=== PATIENT | male | born 1960 | race Caucasian/White ===

== ENCOUNTER → 2016-10-20 | Outpatient (CLI) | payer OTHER | LOC: BMCIMAGING 14:22 | PROVIDERS: ATTEND Nurse Practitioner Adult Health | DX: J40 Bronchitis, not specified as acute or chronic (principal) ==

== ENCOUNTER 2018-07-31 10:21 | Observation (INO) | payer OTHER ==
[2018-07-31 11:05] LABS: PLATELET COUNT 171 10^3/uL (150-400)
[2018-07-31] MEDS ORDERED: ASPIRIN 325 MG TAB PO ONE (11:10)
--- NOTE | 2018-07-31 11:15 | EDPHY ---
H & P Stated Complaint: R ARM AND LEG WEAKNESS FOR LAST 2 DAYS/WHILE TRAVELING IN [facility] Time Seen by Provider: 07/31/18 10:31 HPI/ROS: CHIEF COMPLAINT: Right-sided weakness HISTORY OF PRESENT ILLNESS: 58-year-old male with diabetes and hypertension presents with right-sided weakness. Onset of right-sided weakness 3 days ago while in new [facility]. He has been dropping objects while using his right hand and his hand writing has deteriorated. He also has an unsteady gait because his right lower extremity is not working as usual. No recent head injury and no headache. No prior history of CVA/TIA. REVIEW OF SYSTEMS: complete 10 point ROS reviewed and is negative except for the noted elements in the HPI - Personal History Current Tetanus Diphtheria and Acellular Pertussis (TDAP): Yes - Medical/Surgical History Hx Asthma: Yes Hx Chronic Respiratory Disease: No Hx Diabetes: Yes Hx Cardiac Disease: No Hx Renal Disease: No Hx Cirrhosis: No Hx Alcoholism: No Hx HIV/AIDS: No Hx Splenectomy or Spleen Trauma: No Other PMH: HTN/ASTHMA/DIABETES/BILAT KNEE SURGERY UMBILICAL HERNIA - Social History Smoking Status: Never smoked Alcohol Use: Occasionally Drug Use: None Additional Social History: - Physical Exam Exam: General Appearance: Alert, pleasant Eyes: Pupils equal and round, no conjunctival pallor or injection ENT, Mouth: Mucous membranes moist Neck: Normal inspection Respiratory: Lungs are clear to auscultation Cardiovascular: Regular rate and rhythm, no murmur Gastrointestinal: Abdomen is soft and nontender Neurological: A&O, motor-right upper extremity 5-/5, right lower extremity 5-/5 , gait not assessed Skin: Warm and dry, no rash Extremities: Nontender, no pedal edema Psychiatric: Mood and affect normal Constitutional: Initial Vital Signs Temperature (C) 36.4 C 07/31/18 10:25 Heart Rate 83 07/31/18 10:25 Respiratory Rate 17 07/31/18 10:25 Blood Pressure 158/95 H 07/31/18 10:25 O2 Sat (%) 93 07/31/18 10:25 O2 Delivery Mode Room Air Allergies/Adverse Reactions: Sulfa (Sulfonamide Antibiotics) Allergy (Verified 07/31/18 10:24) Home Medications: Medication Instructions Recorded Albuterol [Proventil Inhaler HFA 1 - 2 puffs IH Q4HRS PRN 07/31/18 (*)] Atorvastatin Calcium [Lipitor 40 40 mg PO DAILY 07/31/18 mg (*)] Fluticasone/Salmeter 250/50Mcg 1 each IH DAILY PRN 07/31/18 [Advair 250/50 (*)] Losartan Potassium [Cozaar 50 mg 50 mg PO DAILY 07/31/18 (*)] Montelukast Sodium [Singulair 10 10 mg PO DAILY 07/31/18 mg (*)] Pantoprazole Sodium [Protonix 40mg 40 mg PO DAILY 07/31/18 (*)] Pioglitazone HCl/Metformin HCl 1 each PO BID 07/31/18 [Actoplus Met 15 mg-850 mg Tab] sitaGLIPtin PHOSPHATE [Januvia 100 100 mg PO DAILY 07/31/18 MG (*)] Aspirin [Adult Low Dose Aspirin EC] 81 mg PO DAILY #30 tablet. 08/01/18 Medical Decision Making - Diagnostics EKG Interpretation: EKG interpreted by me reveals normal sinus rhythm, rate 81, no ST or T segment changes. Interpretation: Normal EKG Imaging Results: CT scan of the brain read by the radiologist reveals a subacute infarct in the left basal ganglia Imaging: Discussed imaging studies w/ driving instructor Radiologist ED Course/Re-evaluation: This patient presents with right-sided weakness, consistent with CVA. He is not a tPA candidate, as symptoms have been present for [address] scan brain per Dr. Perrin reveals a subacute ischemic stroke. Results discussed with the patient. Aspirin [address] Ontiveros consulted and will see the patient in the hospital. The hospitalist service was consulted for admission. The patient was stable throughout his emergency department stay. Differential Diagnosis: Altered mental status including but not limited to hypoglycemia, infectious process, electrolyte abnormality, head injury, CVA, and intoxicants. - Data Points Laboratory Results: Laboratory Results 07/31/18 11:00 07/31/18 11:00 Medications Given: Discontinued Medications Aspirin (Aspirin) 325 mg PO EDNOW ONE Stop: 07/31/18 11:11 Last Admin: 07/31/18 11:29 Dose: 325 mg Aspirin (Aspirin) 325 mg PO DAILY LEONILA Stop: 01/28/19 08:59 Last Admin: 08/01/18 08:10 Dose: 325 mg Atorvastatin Calcium (Lipitor) 40 mg PO DAILY LEONILA Stop: 07/14/19 08:59 Last Admin: 08/01/18 08:10 Dose: 40 mg Enoxaparin Sodium (Lovenox) 40 mg SC DAILY [facility] Stop: 01/28/19 08:59 Last Admin: 08/01/18 08:11 Dose: 40 mg Insulin Human Lispro (Humalog Lispro) 0 unit SC TIDMEAL [facility] PRN Reason: Protocol Stop: 01/27/19 17:59 Last Admin: 08/01/18 11:26 Dose: 2 units Losartan Potassium (Cozaar) 50 mg PO DAILY [facility] Stop: 01/28/19 08:59 Last Admin: 08/01/18 08:10 Dose: 50 mg Montelukast Sodium (Singulair) 10 mg PO DAILY [facility] Stop: 01/28/19 08:59 Last Admin: 08/01/18 08:11 Dose: 10 mg Pantoprazole Sodium (Protonix) 40 mg PO DAILY [facility] Stop: 01/28/19 08:59 Last Admin: 08/01/18 08:11 Dose: 40 mg Sitagliptin Phosphate (Januvia) 100 mg PO DAILY [facility] Stop: 01/28/19 08:59 Last Admin: 08/01/18 08:11 Dose: 100 mg Point of Care Test Results: Chemistry 07/31/18 11:01 POC Troponin I 0.00 ng/mL ng/mL (0.00-0.08) Departure - Departure Disposition: [facility] Acute Clinical Impression: Acute ischemic stroke Condition: Fair
[2018-07-31] MEDS ORDERED: ALBUTEROL 60 PUFFS/8 GM MDI IH PRN (13:51)
[2018-07-31] MEDS ORDERED: FLUTICASONE/SALMETER 250/50MCG DISKUS IH PRN (13:51)
[2018-07-31] MEDS ORDERED: NS 1,000 ML IV SCH (14:45)
[2018-07-31] MEDS ORDERED: IOPAMIDOL (ISOVUE 370) 100 ML BTL IV ONE (15:04)
[2018-07-31] MEDS ORDERED: ONDANSETRON 4 MG/2 ML VIAL IVP PRN (15:31)
[2018-07-31] MEDS ORDERED: ONDANSETRON DISINTEGRATING 4 MG TAB PO PRN (15:31)
[2018-07-31] MEDS ORDERED: D50W 25 GM/50 ML SYR IVP PRN (15:31)
[2018-07-31] MEDS ORDERED: ACETAMINOPHEN 325 MG TAB PO PRN (15:31)
--- NOTE | 2018-07-31 15:40 | CPEKG ---
Test Reason : OPEN Blood Pressure : / mmHG Vent. Rate : 081 BPM Atrial Rate : 081 BPM P-R Int : 156 ms QRS Dur : 084 ms QT Int : 382 ms P-R-T Axes : 039 012 038 degrees QTc Int : 444 ms Sinus rhythm Confirmed by Janine Gomez ([id number]) on 07/31/2018 3:39:34 PM Referred By: Confirmed By:Janine Gomez
--- NOTE | 2018-07-31 16:24 | GHP ---
DATE OF ADMISSION: 07/31/2018 CHIEF COMPLAINT: Right-sided weakness. HISTORY OF PRESENT ILLNESS: This is a 58-year-old male with a history of hypertension, hyperlipidemia, and diabetes, who presented to the emergency room with ongoing right-sided weakness. The onset of his symptoms started this past Tuesday while he was in the [facility] area. When the symptoms occurred, he had been drinking several drinks that day. Initially, he thought he was having difficulty with using his right hand because he was somewhat intoxicated. He could not hold anything in his hand and the glass would drop out of his right hand. He also notes when he was trying to walk to the bathroom, his right leg had been buckling. He attributed the weakness in his right leg from increased walking while visiting [facility]. He describes that his symptoms may be a bit worse today. He is feeling a little bit more numbness in his right hand. Of note, he has ongoing bilateral peripheral neuropathy. He denies any chest pain, any type of weight change, fatigue, fever, chills. He denies any changes in his vision or hearing. He denies any chest pain. He is having some shortness of breath during my interview because he is anxious about being admitted. His appetite is good. He has had no significant changes in his weight. He does not have any issues with urination or constipation. PAST MEDICAL HISTORY: 1. Diabetes mellitus type 2 on oral medications. 2. Asthma. 3. Hypertension. 4. Hyperlipidemia. 5. Bilateral knee surgery. 6. Hernia repair. 7. Rhinoplasty x2 for polyps and then another time for deviated septum. 8. Fatty tumor removal close to his left shoulder area. FAMILY HISTORY: Noncontributory. SOCIAL HISTORY: He has been for 28 years. He has 2 children. He does not smoke. He does drink alcohol. When he drinks he can drink up to 6-7 drinks at a time and other days he has no alcohol. He has had no signs or symptoms of withdrawal. ALLERGIES: To sulfa, nuts, and chocolate. HOME MEDICATIONS: ACTOplus Met 15 mg-850 mg 1 tab twice daily, albuterol inhaler 1-2 puffs q.4 hours p.r.n., Singulair 10 mg daily, Januvia 100 mg daily , Protonix 40 mg daily, losartan 50 mg daily. Advair 250/50 mcg daily p.r.n., and Lipitor 40 mg daily. REVIEW OF SYSTEMS: A 10-point review of system was performed, was negative other than pertinent positives in the HPI and past medical history. PHYSICAL EXAM: GENERAL: This is a 58-year-old gentleman who does not appear to be in any type of acute distress. VITAL SIGNS: Blood pressure is 167/109, heart rate of 80, respiratory rate of 19, O2 saturation on room air 92%, temperature is 36.8 Celsius. EYES: Pupils are equal and reactive. EOMs are intact. No conjunctival injection noted. ENT normal. Ears hearing intact. Normal lips, teeth. Oral airway is moist. NECK: Trachea is midline. CARDIOVASCULAR: He in a regular rate and rhythm. No murmurs, rubs, or gallops noted. CHEST: Lungs normal respiratory effort. Clear without wheezing, rales, or rhonchi. ABDOMEN: Large and rounded, nontender. SKIN: No rashes, ulcers noted. Warm, dry, and intact. MUSCULOSKELETAL: He has equal upper and lower extremity strength. He has no facial droop. No pronator drift. He is able to do a rbug-[id number] test on both sides equally. PSYCHIATRIC: He is alert and oriented. Normal mood, affect is slightly anxious during my interview. He appears to have normal judgment, insight and normal memory. DATA: Reviewed. Radiologic data: 1. Chest x-ray shows bronchitis. No definite pneumonia. 2. A 12-lead ECG, which I evaluated myself, shows a sinus rhythm. 3. Head CT shows acute to subacute lacunar infarct within the left basal ganglia. 4. Brain MRI shows a lacunar infarct in the central left thalamus, which could be acute or subacute. There is a question of a couple tiny foci and hemosiderin deposition within it, but no definite acute hemorrhage seen on the CT. It shows mild underlying chronic sinus related change and mild left maxillary sinusitis. LABORATORY DATA: A CBC shows a white blood cell count of 6.5, hemoglobin 14.5, hematocrit of 42.3, platelet count of 171. Chemistry sodium is 137, potassium of 3.9, chloride of 103, CO2 of 25, creatinine 0.8, GFR of 60 and glucose is 270. Troponin is 0.00. I reviewed the patient's care with Dr. Padma Gomez, emergency room physician. ASSESSMENT/PLAN: 1. Subacute stroke, lacunar infarct in the central left thalamus. An angiogram of his head and neck are currently pending. An echocardiogram with a bubble study has been ordered. Will continue him on aspirin and statin therapy. Will have him continued on 24 hours of tele monitoring. He likely will need a Holter monitor at discharge. Will check an A1c. Will continue monitoring his blood pressure with a goal of 140/90. 2. Hypertension. Will allow for permissive hypertension in the setting of a recent stroke. 3. Hyperlipidemia. Will continue his statin. Check a lipid panel. 4. Diabetes type 2. Per the patient is poorly controlled. He had an A1c in February. Will recheck this. Will initiate sliding scale insulin. Will order an ADA diet. 5. Alcohol use. He does not drink daily but will drink upto 6 drinks at times. We discussed the importance of avoiding this and the impact on his health. He is in very much agreement of addressing this. 6. Morbid obesity. He has a BMI of 33.5. 7. Code status: Full. 8. Length of stay: He will likely require less than a 2-midnight stay, which will make him observation status. This can be further evaluated. Dr. Ontiveros is aware of the patient's admission and will be following up for further evaluation. /[id number]/MODL MTDD
[2018-07-31] MEDS: INSULIN LISPRO 100 UNIT/ML SC SCH (17:05)
--- NOTE | 2018-07-31 19:40 | GCON ---
NEUROLOGIC CONSULTATION REFERRING PHYSICIAN: Willa Waters NP HISTORY: The patient is a 58-year-old gentleman whom I am asked to see in neurologic consultation re garding stroke. He was in [place] [facility] 2 days ago and had been drinking a significant amount of alcoh ol and developed awareness on his right side of trouble with his leg, which was tending to buckle, an d dropping items with his right hand. He came back to the [place] and has subsequently recogni zed ongoing deficits, which led to his evaluation in the emergency room today. There in the hospital , he had imaging showing a lacunar infarction in the left thalamus and has been admitted for workup f or causes of stroke. He has multiple risk factors that include hyperlipidemia, obesity, hypertension , diabetes type 2. He says that he still recognizes the deficits affecting the right hand and the ri ght leg, but is feeling stable. No chest pain, palpitations, or shortness of breath. PAST MEDICAL HISTORY: As outlined above. He has never had a TIA or stroke or myocardial infarction. Also, history of asthma and rhinoplasty. He has not been very compliant with diet and does not hav e a good exercise regimen, he says. His hemoglobin A1c has been significantly elevated. 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 He has been for 28 years and has 2 children. No smoking. Alcohol is consumed in various amounts from none to as heavy as 6 or 7 drin ks in 1 day. He is still working. ALLERGIES: He has allergies to sulfa, nuts, and chocolate. MEDICATIONS: Medicines at home are albuterol, Singulair, Januvia, Protonix, losartan, Advair, Lipito r. REVIEW OF SYSTEMS: Ten points are negative, except for that noted above. PHYSICAL EXAMINATION: VITAL SIGNS: The blood pressure is 167/109, pulse of 80, respirations 19, tem perature 36.8. GENERAL: He is overweight, in no acute distress. EYES: Clear. NECK: Supple, with no bruits or masses. CARDIAC: Regular rate and rhythm. No murmur. NEUROLOGIC: He is alert and o riented, with no cognitive impairment. Pupils 3 mm and reactive. Extraocular movements are intact. Visual cortes full. Normal facial sensation and strength. Hearing is preserved. Palate elevates s ymmetrically. Tongue protrudes midline. Motor examination reveals normal muscle bulk and tone, with perhaps a slight slowing of movements in the right hand and subtle drift. Right lower extremity has mild weakness of the quadriceps. Sensation is preserved. Reflexes are 1+ and symmetric. He has di stal sensory deficits in the lower extremities consistent with his known peripheral neuropathy. DIAGNOSTIC STUDIES: As outlined above. Echocardiogram is pending. CT angiogram is pending. IMPRESSION: Total unit time of 55 minutes. The patient has experienced an acute stroke 2 days ago, with multiple risk factors. This is a lacunar syndrome consistent with progressive atherosclerotic c hange in penetrating vessels, more likely than a large vessel or embolic phenomenon. He needs to foc us much more attention on diet and risk factor management, and he is well aware of that, and we have talked about that. He was advised on following up with Dr. Bishop to help guide him on appropriate diet and details for implementation of a Mediterranean-based diet, as well as appropriate exercise re gimen. He needs physical and occupational therapy consultation tomorrow morning before discharge to determine if outpatient services are needed. His prognosis is good for improvement, but he still has risk of recurrent stroke and should continue on aspirin, in addition to his other medications. His NIH stroke scale is currently 2. He should follow up with me in about a month to review how he is do ing and any other questions that may arise. /[id number]/MODL
--- NOTE | 2018-08-01 08:03 | NEUROPROG ---
Assessment: Total unit time of 25 min. The patient has experienced a lacunar infarction in the left thalamus with mild residual deficits. Once echocardiogram has been completed he should be able to be discharged today and follow up with me in about 1 month and follow up with primary care in the next few weeks to work on risk factor management. He should continue on daily aspirin therapy. Subjective: The patient is alert and attentive and feeling eager to get out of the hospital as soon as he can. Objective: Vital Signs Temp Pulse Resp BP Pulse Ox 36.8 C 94 18 148/82 H 94 08/01/18 07:45 08/01/18 07:45 08/01/18 07:45 08/01/18 07:45 08/01/18 07:45 07/31/18 08/01/18 08/02/18 05:59 05:59 05:59 Intake Total 1000 Balance 1000 He is currently working with physical therapy. The do not appear to be any new changes. The CT angiogram did not show any hemodynamically significant stenosis but some mild to moderate plaquing in the carotid arteries at the bulb. Allergies/Adverse Reactions: Sulfa (Sulfonamide Antibiotics) Allergy (Verified 07/31/18 10:24)
[2018-08-01] MEDS: INSULIN LISPRO 100 UNIT/ML SC SCH ×2 (08:09→11:26)
[2018-08-01] MEDS ORDERED: MONTELUKAST SODIUM 10 MG TAB PO SCH (09:00)
[2018-08-01] MEDS ORDERED: ASPIRIN 325 MG TAB PO SCH (09:00)
[2018-08-01] MEDS ORDERED: ATORVASTATIN CALCIUM 40 MG TAB PO SCH (09:00)
[2018-08-01] MEDS ORDERED: ENOXAPARIN 40 MG/0.4 ML SYR SC SCH (09:00)
[2018-08-01] MEDS ORDERED: LOSARTAN POTASSIUM 50 MG TAB PO SCH (09:00)
[2018-08-01] MEDS ORDERED: PANTOPRAZOLE SODIUM 40 MG TAB PO SCH (09:00)
[2018-08-01 11:18] VITALS: BP 150/80
--- NOTE | 2018-08-01 15:46 | ASMTLACE ---
LACE Length of stay for Answers: 2 days current admission Acuity / Level of Answers: No Care: Did the patient have an inpatient admission? Comorbidities - select Answers: Diabetes (uncontrolled or all that apply controlled) Other Notes: HTN # of Emergency department Answers: 1-2 visits in the last 6 months Score: 5 Date Signed: 08/01/2018 03:45 PM Electronically Signed By:DAGMAR Jones
--- NOTE | 2018-08-01 15:47 | ASMTCMCOM ---
CM Note CM Note Notes: Neuro/PT/OT/SILVERER clear pt for home. No CM d/c needs identified. Date Signed: 08/01/2018 03:46 PM Electronically Signed By:DAGMAR Jones
--- NOTE | 2018-08-01 16:37 | PDDCSUM ---
Discharge Summary Discharge Summary: Date of Admission: 07/31/2018 Date of Discharge: 08/01/2018 Consults: Neurology Procedures: CT Head, MRI Brain, CTA Head Neck, TTE Followup: PCP, Neurology Hospital Course Problem ListL Subacute Stroke, Lacunar infarct in central L thalamus - Seen on MRI - Neurology consulted who recommend continued on ASA daily, will f/u as outpatient - Lipid panel checked, continue home statin - Hgb A1c elevated to 11.5, see below - TTE with bubble study ordered to evaluate for shunting, patient did not want to stay in the hospital to await these results, discussed with patients who agreed to followup on these results with his PCP Dr. Bishop Uncontrolled T2DM - A1c 11.5 - Continue home anti-hyperglycemics - Will defer to PCP for further management, should be placed on insulin regimen given elevated A1c and current CVA HTN - Continue home meds Chronic Issues: Alcohol abuse, Morbid Obesity Time spent on discharge was >35 minutes with >50% of time spent on patient education and counseling.
--- NOTE | 2018-08-01 19:05 | ECHO ---
[email or web address] [address] [address] Main: [phone] Fax: Transthoracic Echocardiogram Name: LISY SALGADO MR#: [id number] Study Date: 08/01/2018 Study Time: 11:30 AM Date of : 1960 Age: 58 year(s) Height: 172.7 cm (68 in.) Weight: 99.79 kg (220 lb.) BSA: 2.13 m2 Gender: Male Examination: Echo Indication: Hemorrhagic stroke Image Quality: Technically Difficult Contrast: Requested by: Willa Waters BP: 150 mmHg/80 mmHg Heart Rate: Rhythm: Indication: Hemorrhagic stroke Procedure Staff Rounding Machine Operator: Shameka Camargo RDCS Reading Physician: Parul Alarcon MD Requesting Provider: Conclusions: Normal size left ventricle. No LV hypertrophy. Normal global systolic LV function. EF is 72 %. No regional wall motion abnormality. Normal diastolic LV function. Normal size right ventricle. Normal RV function. Agitated saline injected - bubble study is inconclusive because of poor acoustic windows.. No signfiicant valvular disease. No prior echo Measurements: Chambers Valvular Assessment AV/MV Valvular Assessment TV/PV Normal Normal Normal Name Value Range Name Value Range Name Value Range Ao Mirella (MM): 3.6 cm (2.2 cm-3.7 AV Vmax: 1.53 m/s (1 m/s-1.7 cm) m/s) IVSd (2D): 0.9 cm (0.6 cm-1.1 AV meanP mmHg ( - ) cm) MV E Vmax: 0.80 m/s ( - ) LVDd (2D): 4.6 cm (4.2 cm-5.9 MV A Vmax: 0.89 m/s ( - ) cm) MV E/A: 0.90 ( - ) LVPWd (2D): 1.0 cm (0.6 cm-1 cm) LVEF (BP): 72 % (>=55 %) Continued Measurements: Chambers Valvular Assessment AV/MV Name Value Name Value Patient: LISY SALGADO Study Date: 08/01/2018 Page 1 of 2 11:30 AM LADs: 3.8 cm MV E' Septal: 0.05 m/s LADs Lon.0 cm MV E/E' Septal: 14.90 LA Area: 21.6 cm2 MV E/E' Lateral: 10.80 LA Volume: 60 ml LA Volume Index: 28.2 ml/m2 Additional Vessels Name Value Ao Ascendin.7 cm Findings: Left Ventricle: Normal size left ventricle. No LV hypertrophy. Normal global systolic LV function. EF is 72 %. No regional wall motion abnormality. Normal diastolic LV function. Right Ventricle: Normal size right ventricle. Normal RV function. Left Atrium: The left atrium is normal in size. Agitated saline injected - bubble study is inconclusive because of poor acoustic windows.. Right Atrium: The right atrium is normal in size. Mitral Valve: The mitral valve is normal in appearance and function. Aortic Valve: The aortic valve is normal in appearance and function. Tricuspid Valve: The tricuspid valve is normal in appearance and function. Pulmonic Valve: Pulmonary valve not well visualized. Aorta: The aorta is normal. Pericardium: No pericardial effusion. (No Signature Object) Patient: LISY SALGADO Study Date: 08/01/2018 Page 2 of 2 11:30 AM [id number]
== END 2018-08-01 14:30 | disposition home or self-care (01) ==
LOC: F3N 14:42
PROVIDERS: ADMIT Internal Medicine; ATTEND Internal Medicine
DX: I63.81 Other cerebral infarction due to occlusion or stenosis of small artery (principal); R29.702 NIHSS score 2; E11.9 Type 2 diabetes mellitus without complications; I10 Essential (primary) hypertension; J45.909 Unspecified asthma, uncomplicated; E78.5 Hyperlipidemia, unspecified; E66.01 Morbid (severe) obesity due to excess calories; Z68.33 Body mass index [BMI] 33.0-33.9, adult; Z79.84 Long term (current) use of oral hypoglycemic drugs
CPT/HCPCS: 70450; 70496; 70498; 70551; 92523; 93005; 93308; 97161; 97166; 97530; 97535; 99285; G0378; 84484-ER; J1650; J1815; Q9967